=== PATIENT | female | born 1935 | race Caucasian/White ===

== ENCOUNTER → 2017-07-13 | Outpatient (CLI) | payer MEDICARE, BC ==
[~2017-07-13] MED LIST: ACETAMINOPHEN PO; ACTOS30 MG PO; ASPIRIN81 M1 PO; CITALOPRAM HBR40 MG PO; FEVERALL650 MG/SUP RC; FOSAMAX70 MG PO; LANTUS100 U/ML SUBQ; LANTUS100 UNITS/ SUBQ; LISINOPRIL10 MG PO; LISINOPRIL5 MG PO; METFORMIN HCL850 MG PO; METFORMIN PO; METRONIDAZOLE PO; MULTIVITAMIN1 UDCAP PO; PRILOSEC20 MG PO; PRINIVIL5 MG PO; THERAGRAN-M ADV1 TA1 PO; VIBRAMYCIN100 M1 PO
--- NOTE | ~2017-07-13 | MY29 ---
[facility] A Service of [facility] RADIOLOGY TEXT RESULTS PATIENT: CARRILLO MANZANO LOCATION: [facility] : 37 UNIT #: [id number] AGE: [address]: Tequila Patel APRN SEX: F ORDER DR: [id number] [facility] [address] [place], [place] [address] [id number] O MR#: [id number] Acc #: [id number] NAME: CARRILLO MANZANO : 1935 SEX: F STUDY DATE/TIME: 07/13/2017 8:27 UNIT: [facility] ROOM: STUDY DESCRIPTION: MY [facility] SCREENING W/ CAD BILAT Attending Physician: Tequila Patel A.P.R.N. Referring Physician: Tequila Patel A.P.R.N. Ordering Physician: Tequila Patel A.P.R.N. Primary Care Physician: Tequila Patel A.P.R.N. MEDICAL IMAGING REPORT This report is preliminary unless electronic signature is present EXAM Digital screening mammogram with CAD. INDICATIONS Routine screening. PROCEDURE Bilateral CC and MLO and left XCCL view obtained on digital mammography, and FDA-approved CAD device utilized. COMPARISON 07/12/2016 FINDINGS Scattered fibroglandular density. No dominant mass or suspicious calcification. IMPRESSION Negative screening mammogram; screening interval of 1 year is suggested. Patients over the age of 40 are entered into a reminder system with target due date for the next mammogram. A result letter will also be sent to the patient. BIRADS: 1 Negative Dictated by... Marc Turcios M.D. THIS IS AN ELECTRONICALLY VERIFIED REPORT Marc Turcios M.D. at 07/14/2017 7:02 AM ADRY/adele [facility] A Service of [facility] RADIOLOGY TEXT RESULTS PATIENT: CARRILLO MANZANO LOCATION: [facility] : 37 UNIT #: [id number] AGE: [address]: Tequila Patel APRN SEX: F ORDER DR: TD: 07/13/2017 14:54 JOB #: [id number] MEDICAL IMAGING REPORT Page 1 of 1 COPY
== END | disposition home or self-care (01) ==
LOC: CWCC 08:15
DX: Z12.31 Encounter for screening mammogram for malignant neoplasm of breast (principal)
CPT/HCPCS: G0202